=== PATIENT | male | born 1945 | race Caucasian/White ===

== ENCOUNTER → 2017-05-04 | Day surgery (SDC) | payer MEDICARE, BC ==
[~2017-05-04] MED LIST: ACID CONTROL150 MG PO; LISINOPRIL20 MG PO; MYSOLINE50 M1 PO; OMEPRAZOLE40 M1 PO; OSTEO BI-FLEX1 EACH PO; SIMVASTATIN40 MG PO
--- NOTE | ~2017-05-04 | OR ---
Unit #: [id number] #: [id number] Patient: NURA THOMSON JR [id number] [address] [place], [place] [address] [id number] MR#: [id number] NAME: NURA THOMSON JR ROOM: Date of Procedure: 05/04/2017 Admission Date: 05/04/2017 Surgeon: Armani Del Valle M.D. : 1945 Attending Physician: Armani Del Valle M.D. Primary Care Physician: Theodore Jacobs D.O. OPERATIVE REPORT PREOPERATIVE DIAGNOSES 1. Reflux symptoms resistant to ranitidine. 2. History of colonic polyps. POSTOPERATIVE DIAGNOSES 1. Reflux symptoms resistant to ranitidine. 2. History of colonic polyps. PROCEDURES PERFORMED 1. Esophagogastroduodenoscopy. 2. Biopsy of antrum for Helicobacter pylori testing. 3. Multiple biopsies of distal esophagus. 4. Colonoscopy to cecum. ANESTHESIA Monitored anesthesia care. FINDINGS The patient was found to have a medium-sized hiatal hernia. He had distal esophagitis and changes suspicious for Jenkins's esophagus. The patient also had moderate gastritis distally. The colon was normal except for mild internal hemorrhoids. SPECIMENS Sent to pathology. COMPLICATIONS None apparent. CONDITION The patient tolerated the procedure well. INDICATIONS FOR PROCEDURE The patient is a 71-year-old white male, who presents at this time for evaluation of reflux symptoms resistant to ranitidine as well as history of colonic polyps and had high-grade dysplasia. DESCRIPTION OF PROCEDURE After obtaining informed consent, the patient was brought to the endoscopy suite and after adequate monitored anesthesia care, had the endoscope placed through the mouth into the upper esophagus under direct vision. It was advanced to the second portion of the duodenum without difficulty with Unit #: [id number] #: [id number] Patient: NURA THOMSON JR the lumen always in view. The duodenum was normal as was the duodenal bulb. The pylorus opened normally. There was some moderate distal gastritis present and a biopsy was obtained for Helicobacter pylori testing. On retroflexion back to the GE junction, there was a medium sized hiatal hernia. No other abnormalities were found in the proximal third, middle third, or incisura. On pulling back above the GE junction, there was a moderate distal esophagitis and changes suspicious for Jenkins's esophagus. Multiple biopsies were obtained with good hemostasis. There was no stenosis, stricture, or neoplasm seen. The remaining portion of the esophagus was within normal limits. Laryngeal structures were grossly normal as viewed from above. At this point in time, the colonoscope was placed through the anus and slowly advanced to the level of the cecum without difficulty with the lumen always in view. The cecum was normal as was the ileocecal valve. The ascending colon was normal as was the hepatic flexure, transverse colon, splenic flexure, descending colon, sigmoid colon, and rectum. On retroflexing in the rectum to the anorectal junction, there were some [id number] internal hemorrhoids. The scope was removed without difficulty. The patient tolerated the procedure well. On digital examination, there was good sphincter tone. No masses palpable. The patient went from the endoscopy suite to recovery area in stable condition. RECOMMENDATIONS High-fiber diet, lots of liquids, tucks or wipes p.r.n. Gastroesophageal reflux sheet given. Prescription for omeprazole given. Call for pathology. Dictated by... Hailee Kumar/kristi TD: 05/04/2017 23:19 JOB #: [id number] CC: [facility] OPERATIVE REPORT Page 1 of 1 X Armani Del Valle MD X PROCEDURE OPERATIVE NOTE
== END | disposition home or self-care (01) ==
LOC: COPS 05:25
DX: Z12.11 Encounter for screening for malignant neoplasm of colon (principal); K44.9 Diaphragmatic hernia without obstruction or gangrene; K29.70 Gastritis, unspecified, without bleeding; K64.4 Residual hemorrhoidal skin tags; K21.9 Gastro-esophageal reflux disease without esophagitis; I10 Essential (primary) hypertension; E78.5 Hyperlipidemia, unspecified; Z86.010 Personal history of colon polyps; Z79.899 Other long term (current) drug therapy; Z98.41 Cataract extraction status, right eye; Z98.42 Cataract extraction status, left eye; Z90.49 Acquired absence of other specified parts of digestive tract; Z90.79 Acquired absence of other genital organ(s); Z98.890 Other specified postprocedural states
CPT/HCPCS: 43239; G0105; 87077; 88305